=== PATIENT | male | born 1980 | race Caucasian/White ===

== ENCOUNTER 2023-10-03 05:13 | Emergency (ER) | payer OTHER, SELFPAY ==
[2023-10-03 05:16] VITALS: BP 170/120
[2023-10-03 05:47] VITALS: BMI 33.0
[2023-10-03 05:52] VITALS: BP 148/106
[2023-10-03 05:59] LABS: % Basophils 0.4 % (0-2); % Eosinophils 2.6 % (0-6); % Immature Granulocytes 0.4 % (0-0.5); % Lymphocytes 46.6 % (20.5-51.1); % Monocytes 11.6 % (1.7-9.3); % Neutrophils 38.4 % (42.2-75.2); Absolute Eosinophils 0.2 10^3/uL (0-0.7); Absolute Lymphocytes 3.3 10^3/uL (1.2-3.4); Absolute Monocytes 0.8 10^3/uL (0.1-0.6); Absolute Neutrophils 2.7 10^3/uL (1.4-6.5); Hemoglobin 14.3 g/dL (13.0-18.0); Mean Corp Hgb Conc. 34.9 g/dL (33.0-37.0); Mean Corpuscular Hgb 29.4 pg (27.0-31.0); Mean Corpuscular Volume 84.4 fL (80.0-94.0); Nucleated Red Blood Cells % 0 % (-); Platelet Count 380 10^3/uL (130-400); Red Blood Cell Count 4.86 10^6/uL (4.70-6.10); Red Cell Dist. Width 12.3 % (11.5-14.5)
--- NOTE | 2023-10-03 06:00 | ED.GENMED ---
History of Present Illness
General
Chief Complaint: Abdominal Pain
Time Seen by Provider: 10/03/23 06:00
Travel History
Have you had any contact with someone who has COVID-19?: No
Do you have any symptoms of coronavirus? Fever > 100 degrees, chills, cough, shortness of breath, sore throat, loss of taste or smell, muscle aches, or headache?: No
History of Present Illness
History of Present Illness:
HPI: Patient presents with abdominal pain. This is associated with several other symptoms including sensation of rapid heartbeat�he took propranolol. He also sensation of his face being red. He feels that the abdominal disc was described as
feeling bloated 'like a basketball in my stomach'. He did take Gas-X earlier and feels somewhat improved but feels that his symptoms are gone return if he has anything to eat
EXAM:
GENERAL: Well appearing in no distress
HEENT: Moist oral mucosa
CARDIOVASCULAR: No murmurs, normal heart rate, regular rhythm, No chest wall tenderness
PULMONARY: No respiratory distress, breath sounds are clear and equal
ABDOMEN: Soft with no peritoneal signs, minimal left lower quadrant tenderness, elevated BMI
NEUROLOGIC: Excellent strength all extremities, no coordination deficits
PSYCHIATRIC: Appropriate mental status, normal insight and judgement
EXTREMITIES: Nontender, no edema, moves all extremities equally
SKIN: No rash, no lesions
TIME OF INITIAL ENCOUNTER: 6:10 AM
NUMBER AND COMPLEXITY OF PROBLEMS ADDRESSED AT THE ENCOUNTER
� Chronic conditions affecting care: GERD, anxiety, OCD
� Acute Exacerbation and/or Progression of Chronic Illness: This is an acute problem
� Differential Diagnosis includes: Diverticulitis, anxiety, GERD
AMOUNT AND/OR COMPLEXITY OF DATA TO BE REVIEWED AND ANALYZED
� I performed an independent evaluation of and my interpretation is:
EKG: Sinus 78, inferior Q waves
CT: CT abdomen pelvis shows no acute abnormality however urinary bladder was distended
X-rays:
Laboratory Studies: CBC unremarkable results unremarkable including normal lipase
Other:
� Review of other/old records: Stress echo from 2020 was unremarkable
� Clinical information was obtained by an independent historian: None needed
� Prescriptions/Medications Considered but not given:
� Further testing considered but not performed:
RISK OF COMPLICATIONS AND/OR MORBIDITY OR MORTALITY OF PATIENT MANAGEMENT
� Social determinants of health affecting care: Lives at home
� Discussion with other providers: Notified GI front office for close follow-up
� Escalation of care including admission/observation vs risk of discharge considered: Will obtain CT imaging given the left lower quadrant tenderness but overall he is spontaneously feeling improved. CT unremarkable�urinalysis
negative. The patient also tells me he is on a new psychiatric medication for OCD�he is to follow-up with psychiatrist. Appears comfortable at time of discharge at 7:40 AM.
Past History
Past History
ED Past Medical History: None
ED Past Surgical History: None
Social History
Tobacco: Non-smoker
Personal: Single
Living: alone
Employment: Employed
Phy Exam
Physical Exam
Physical Exam:
See HPI
Course
Orders/Labs/Results
Orders:
Orders
10/03/23 05:53
Complete Blood Count/With Diff Urgent
Comprehensive Metabolic Panel Urgent
Lipase Urgent
10/03/23 05:54
ECG [Electrocardiogram (*1)] Urgent
Reason for Study: Abdominal Pain
10/03/23 05:55
EKG- Treatment ONCE
10/03/23 06:16
Urinalysis Reflex To Culture Urgent
Date Specimen was Collected: 10/03/23
Time Specimen was Collected: 06:12
10/03/23 06:20
Iohexol [Omnipaque] 50 ml .ROUTE .[facility]
10/03/23 06:21
CT Abd/pelvis W Iv Cont Urgent
Comment:
Reason For Exam: abd pain mostly llq
Abnormal Lab Results
10/03/23
05:53
Absolute Monos (auto) 0.8 H 10^3/uL
(0.1-0.6)
Neutrophils % 38.4 L %
(42.2-75.2)
Monocytes % 11.6 H %
(1.7-9.3)
Glucose 108 H mg/dl
(70-99)
10/03/23 05:53
10/03/23 05:53
Vital Signs
Initial and Last Documented VS:
Initial Vital Signs
Temp Pulse Resp BP Pulse Ox
97.6 F 88 24 170/120 98
10/03/23 05:16 10/03/23 05:16 10/03/23 05:16 10/03/23 05:16 10/03/23 05:16
Last Documented Vital Signs
Temp Pulse Resp BP Pulse Ox
98.8 F 78 16 148/106 97
10/03/23 05:52 10/03/23 05:52 10/03/23 05:52 10/03/23 05:52 10/03/23 05:52
*Critical Care Note
Total Time (30-74mins, 75-104mins- exclusive of procedures): Not Applicable
ED Attending Note
-
Portions of this chart may have been created with voice recognition software.� Occasional wrong word or��sound alike� substitutions may have occurred due to the inherent limitations of voice recognition software.
Discharge Plan
Departure
Patient Disposition: Home (Routine Discharge)
Date of Disposition: 10/03/23
Time of Disposition: 07:35
Patient with high blood pressure during this ER visit?: Yes
Discharge Problem:
Abdominal pain
Instructions: Abdominal Pain
Prescriptions:
No Action
albuterol sulfate 1 PUFF HFA aerosol inhaler
2 puff inhalation R QID PRN (Reason: sob)
omeprazole 40 mg Capsule,Delayed Release(Dr/Ec)
40 mg PO DAILY
propranolol 20 mg Tablet
20 mg PO PRN PRN (Reason: anxiety)
vilazodone 20 mg Tablet
10 mg PO DAILY
Referrals:
Hudson Dunham DO [Family Provider] -
Jaime Lazar MD [Active] - Follow up in 2-3 days
Activity Restrictions/Additional Instructions:
The cause of your symptoms is unclear. I recommend you follow-up with GI and with your psychiatrist. Blood work was normal today. Continue omeprazole. Return here if worse.
Interventions
Interventions:
*Risk Screen - Suicide Last Done: 10/03/23 05:16
*General Assessment Last Done: 10/03/23 05:48
*Neglect/Abuse Screening Last Done: 10/03/23 05:16
ED- Fall Risk Assessment Last Done: 10/03/23 05:50
*ED COVID-19 Vaccine History Last Done: 10/03/23 05:47
UN-Lzqumh-Mstqshcjre Assessment Last Done: 10/03/23 05:50
ED- Cardiac Assessment Last Done: 10/03/23 05:50
ED- Neurological Assessment Last Done: 10/03/23 05:50
ED- Pulmonary Assessment Last Done: 10/03/23 05:50
[2023-10-03 06:14] LABS: ALT (SGPT) 50 U/L (0-50); AST (SGOT) 48 U/L (17-59); Albumin 4.4 g/dl (3.5-5.0); Alkaline Phosphatase 61 U/L (38-126); Blood Urea Nitrogen 18 mg/dl (9-20); Calcium 9.3 mg/dl (8.4-10.2); Carbon Dioxide 28 mmol/L (22-30); Chloride 104 mmol/L (98-107); Estimated Creatinine Clearance > 125 ml/min; Glucose 108 mg/dl (70-99); Lipase 158 U/L (23-300); Potassium 4.7 mmol/L (3.5-5.1); Sodium 137 mmol/L (135-145); Total Bilirubin 0.5 mg/dl (0.2-1.3); Total Protein 7.3 g/dl (6.3-8.2); eGFR > 60.00
[2023-10-03 07:13] LABS: Urine Albumin Negative (Neg - Trace); Urine Bilirubin Negative (Negative); Urine Character Clear (Clear); Urine Color Yellow; Urine Glucose Negative (Negative); Urine Ketone Negative (Negative); Urine Leukocyte Negative (Negative); Urine Nitrite Negative (Negative); Urine Occult Blood Negative (Negative); Urine Urobilinogen Negative (Neg - 1+)
[2023-10-03 08:03] VITALS: BP 121/82
== END 2023-10-03 08:15 | disposition home or self-care (01) ==
LOC: EMR 05:13
PROVIDERS: Student in an Organized Health Care Education/Training Program; EMERGENCY PHYSICIAN Emergency Medicine; FAMILY PHYSICIAN Family Medicine
DX: R10.9 Unspecified abdominal pain (principal); R03.0 Elevated blood-pressure reading, without diagnosis of hypertension
CPT/HCPCS: 99285; 74177; 80053; 81003; 83690; 85025; 93005; Q9967

== ENCOUNTER 2023-10-05 04:25 | Emergency (ER) | payer OTHER, SELFPAY ==
[2023-10-05 04:28] VITALS: BP 167/109
[2023-10-05 04:45] VITALS: BMI 33.2
--- NOTE | 2023-10-05 04:51 | ED.GENMED ---
History of Present Illness
<MANUELITO Teresa - Last Filed: 10/05/23 06:00>
General
Chief Complaint: Abdominal Pain
Source: patient
Exam Limitations: none
Time Seen by Provider: 10/05/23 04:29
Nursing documentation reviewed up to this point in time: agreed with
Travel History
Have you had any contact with someone who has COVID-19?: No
Do you have any symptoms of coronavirus? Fever > 100 degrees, chills, cough, shortness of breath, sore throat, loss of taste or smell, muscle aches, or headache?: No
History of Present Illness
History of Present Illness:
patient is a 43 y/o male with PMH of hiatal hernia and fatty liver disease presenting with abdominal pain x 3 days. patient presents with abdominal pain that becomes worse when lying supine. Patient admits the pain is better when he is up and moving
around. patient admits to increased distension of the abdomen that is associated with the pain. Patient admtis the distension increases when lying down and is the cause of his discomfort. Patient admits he has forced himself to vomit multiple times
to try and relive the pain and distention with mild relief. patient was in the hospital 2 days ago for abdominal pain and was told to follow up with GI and take omeprazole which he has been doing. patient denies N/D/C, CP, SOB, HENRY, fever, chills,
and blood in the stool.
Past History
<MANUELITO Teresa - Last Filed: 10/05/23 06:00>
Past History
ED Past Medical History: None
ED Past Surgical History: None
Social History
Tobacco: Non-smoker
Personal: Single
Living: alone
Employment: Employed
Review of Systems
<MANUELITO Teresa - Last Filed: 10/05/23 06:00>
Review of Systems
All Other Systems: Not applicable
Constitutional: Reports no symptoms
EENT: Reports no symptoms
Respiratory: Reports no symptoms
Cardiac: Reports no symptoms
ABD/GI: Reports abdominal pain and other (bloating )
: Reports no symptoms
Musculoskeletal: Reports no symptoms
Skin: Reports no symptoms
Neurological: Reports no symptoms
Endocrine: Reports no symptoms
Hematologic/Lymphatic: Reports no symptoms
Psychiatric: Reports no symptoms
Phy Exam
<MANUELITO Teresa - Last Filed: 10/05/23 06:00>
General Physical Exam
General Presentation: well appearing and no apparent distress
General Skin: warm and dry
General Habitus: normal
General Mental: alert
General Hydration: appears well hydrated
ENT Exam
ENT Exam: EOMI, pharynx normal, neck supple and normocephalic
Eye Exam
Eye Exam: PERRL, cornea clear and conjunctiva normal
Cardiovascular Exam
Cardiovascular Exam: regular rate/rhythm, no edema, no murmur and normal peripheral pulses
Pulmonary Exam
Pulmonary Exam: lungs clear, no respiratory distress, no rales, no crackles, no rhonchi, no stridor, no wheezing and no cough
Gastrointestinal Exam
Gastrointestinal Exam: normal bowel sounds, soft, distended, tender and other (history of hiatal hernia )
Palpation: generalized: Minimal tenderness
Auscultation of Abdomen: normal
Neurological Exam
Neurological Exam: alert, oriented x3, no motor deficits and speech normal
Musculoskeletal Exam
Musculoskeletal Exam: full ROM and no edema
Skin Exam
Skin Exam: normal color, warm/dry, no rash and no petechia
Psychiatric Exam
Psychiatric Exam: normal mood/affect
Course
<MANUELITO Teresa - Last Filed: 10/05/23 06:00>
Orders/Labs/Results
Orders:
Orders
10/05/23 05:21
Complete Blood Count/With Diff Urgent
Comprehensive Metabolic Panel Urgent
Lipase Urgent
Urinalysis Reflex To Culture Urgent
Date Specimen was Collected: 10/05/23
Time Specimen was Collected: 05:12
10/05/23 05:49
Lactic Acid Urgent
Lipase Urgent
10/05/23 05:50
INR [Prothrombin Time] Urgent
PTT Urgent
Abnormal Lab Results
10/05/23
05:21
Absolute Monos (auto) 0.8 H 10^3/uL
(0.1-0.6)
Neutrophils % 42.1 L %
(42.2-75.2)
Monocytes % 11.0 H %
(1.7-9.3)
Sodium 134 L mmol/L
(135-145)
Glucose 111 H mg/dl
(70-99)
ALT 55 H U/L
(0-50)
10/05/23 05:21
10/05/23 05:21
Vital Signs
Initial and Last Documented VS:
Initial Vital Signs
Temp Pulse Resp BP Pulse Ox
98.1 F 88 20 167/109 100
10/05/23 04:28 10/05/23 04:28 10/05/23 04:28 10/05/23 04:28 10/05/23 04:28
Last Documented Vital Signs
Temp Pulse Resp BP Pulse Ox
98.1 F 88 20 167/109 98
10/05/23 04:28 10/05/23 04:28 10/05/23 04:28 10/05/23 04:28 10/05/23 04:51
Joaquimlt;Ramakrishna Garg, DO - Last Filed: 10/05/23 06:36>
Orders/Labs/Results
Orders:
Orders
10/05/23 05:21
Complete Blood Count/With Diff Urgent
Comprehensive Metabolic Panel Urgent
Lipase Urgent
Urinalysis Reflex To Culture Urgent
Date Specimen was Collected: 10/05/23
Time Specimen was Collected: 05:12
10/05/23 05:49
Lactic Acid Urgent
Lipase Urgent
10/05/23 05:50
INR [Prothrombin Time] Urgent
PTT Urgent
Abnormal Lab Results
10/05/23
05:21
Absolute Monos (auto) 0.8 H 10^3/uL
(0.1-0.6)
Neutrophils % 42.1 L %
(42.2-75.2)
Monocytes % 11.0 H %
(1.7-9.3)
Sodium 134 L mmol/L
(135-145)
Glucose 111 H mg/dl
(70-99)
ALT 55 H U/L
(0-50)
10/05/23 05:21
10/05/23 05:21
Vital Signs
Initial and Last Documented VS:
Initial Vital Signs
Temp Pulse Resp BP Pulse Ox
98.1 F 88 20 167/109 100
10/05/23 04:28 10/05/23 04:28 10/05/23 04:28 10/05/23 04:28 10/05/23 04:28
Last Documented Vital Signs
Temp Pulse Resp BP Pulse Ox
98.1 F 88 20 167/109 98
10/05/23 04:28 10/05/23 04:28 10/05/23 04:28 10/05/23 04:28 10/05/23 04:51
Joaquimlt;MANUELITO Teresa - Last Filed: 10/05/23 06:00>
MDM/Problems Addressed
Differential Diagnosis Includes:
SBO
hiatal hernia complication
bloating
MDM/Problems Addressed:
abdominal discomfort
Chronic conditions affecting care:
hiatal hernia and fatty liver disease
<MANUELITO Teresa - Last Filed: 10/05/23 06:00>
*Critical Care Note
Total Time (30-74mins, 75-104mins- exclusive of procedures): Not Applicable
ED Attending Note
<MANUELITO Teresa - Last Filed: 10/05/23 06:00>
-
Portions of this chart may have been created with voice recognition software.� Occasional wrong word or��sound alike� substitutions may have occurred due to the inherent limitations of voice recognition software.
<Ramakrishna Garg DO - Last Filed: 10/05/23 06:36>
ED Attending Note
Patient seen and examined by attending physician: Yes
I performed the substantive portion of visit, reviewed & personally made and approve the management plan that is documented in note by myself or QUINTON.: Yes
ED Attending Note:
This a pleasant 43-year-old male presents with abdominal pain that is worse when lying flat. He states that the pain is better when sitting up and moving around. Patient does report increased distention. Patient was seen in the emergency
department 2 days ago and had workup including CAT scan done. He states his symptoms have not subsided. He was started on omeprazole. He does report continued bloating. Denies fever, chills, chest pain, or shortness of breath. Patient was seen
in conjunction with the PA student. I have reviewed and agree with the history and treatment plan presented. On my independent physical exam, patient is awake, alert, and oriented x3, minimal acute distress. Heart is regular rate and rhythm.
Lungs are clear to auscultation bilaterally without wheezes rales or rhonchi abdomen is soft nontender and is not distended at time of exam. Good bowel sounds x 4 quadrants.
I spoke with Dr. Evans, gastroenterology who recommended FDgard, [id number] and Dr. Cleveland will see him today at 115
Patient will follow-up at gastroenterology today. He will apply the FD guard.
Discharge Plan
Departure
Patient Disposition: Home (Routine Discharge)
Date of Disposition: 10/05/23
Time of Disposition: 06:28
Patient with high blood pressure during this ER visit?: Yes
Condition: Good
Discharge Problem:
Abdominal pain, Bloating
Prescriptions:
New
sucralfate [Carafate] 100 mg/mL suspension
10 ml PO QID Qty: 200 0RF
No Action
albuterol sulfate 1 PUFF HFA aerosol inhaler
2 puff inhalation R QID PRN (Reason: sob)
omeprazole 40 mg Capsule,Delayed Release(Dr/Ec)
40 mg PO DAILY
propranolol 20 mg Tablet
20 mg PO PRN PRN (Reason: anxiety)
vilazodone 20 mg Tablet
10 mg PO DAILY
Referrals:
Hudson Dunham DO [Family Provider] -
Steph Pierre MD [Active] - Next open appointment
Activity Restrictions/Additional Instructions:
Please purchase FDgard [id number].
Please keep your appointment with Dr. Pierre scheduled for today. Please be at the office by 1:30pm TODAY
Continue to take your omeprazole
It was a pleasure meeting you and taking part in your care. We hope for your continued healing and wellness.
Please read discharge instructions in their entirety. However, they are for general education and may not describe your exact diagnosis at discharge. Information on your ER visit and medical conditions were discussed with you along with appropriate
follow up information...
If indicated, please take your medications as instructed and indicated on discharge paperwork.
Please schedule a follow up appointment as directed. Call to schedule an appointment
Please return to the emergency department with ANY change in, persisting, or worsening of symptoms. If any of your symptoms do not improve, or persist, or become more severe within 6-12 hours, please return to the emergency department for further
care.
Please return to the emergency department if you develop a headache, neck pain/stiffness, fever greater than 100.4F, chest pain, shortness of breath, persistent nausea, vomiting, slurred speech, difficulty walking, numbness/tingling, weakness, signs
of infection or any other symptoms that are worrisome to you.
If you have any questions or concerns please do not hesitate to call the Hospital at or E-mail me directly at [email or web address]
Interventions
Interventions:
*Risk Screen - Suicide Last Done: 10/05/23 04:32
*General Assessment Last Done: 10/05/23 04:32
*Neglect/Abuse Screening Last Done: 10/05/23 04:32
*ED COVID-19 Vaccine History Last Done: 10/05/23 04:33
ER-Mqoocy-Egolisdlqg Assessment Last Done: 10/05/23 04:51
[2023-10-05 05:30] LABS: % Basophils 0.4 % (0-2); % Eosinophils 2.1 % (0-6); % Immature Granulocytes 0.3 % (0-0.5); % Lymphocytes 44.1 % (20.5-51.1); % Neutrophils 42.1 % (42.2-75.2); Absolute Eosinophils 0.2 10^3/uL (0-0.7); Absolute Lymphocytes 3.1 10^3/uL (1.2-3.4); Absolute Monocytes 0.8 10^3/uL (0.1-0.6); Absolute Neutrophils 2.9 10^3/uL (1.4-6.5); Hematocrit 41.3 % (39.0-52.0); Hemoglobin 14.4 g/dL (13.0-18.0); Mean Corp Hgb Conc. 34.9 g/dL (33.0-37.0); Mean Corpuscular Hgb 29.3 pg (27.0-31.0); Mean Corpuscular Volume 84.1 fL (80.0-94.0); Mean Platelet Volume 9.1 fL (7.4-10.4); Nucleated Red Blood Cells % 0 % (-); Platelet Count 379 10^3/uL (130-400); Red Blood Cell Count 4.91 10^6/uL (4.70-6.10); Red Cell Dist. Width 12.2 % (11.5-14.5)
[2023-10-05 05:42] LABS: Urine Albumin Negative (Neg - Trace); Urine Bilirubin Negative (Negative); Urine Character Clear (Clear); Urine Color Yellow; Urine Glucose Negative (Negative); Urine Ketone Negative (Negative); Urine Leukocyte Negative (Negative); Urine Nitrite Negative (Negative); Urine Occult Blood Negative (Negative); Urine Specific Gravity 1.005 (<1.030); Urine Urobilinogen Negative (Neg - 1+)
[2023-10-05 05:52] LABS: ALT (SGPT) 55 U/L (0-50); AST (SGOT) 45 U/L (17-59); Albumin 4.4 g/dl (3.5-5.0); Alkaline Phosphatase 60 U/L (38-126); Blood Urea Nitrogen 14 mg/dl (9-20); Calcium 9.6 mg/dl (8.4-10.2); Carbon Dioxide 27 mmol/L (22-30); Chloride 102 mmol/L (98-107); Estimated Creatinine Clearance > 125 ml/min; Glucose 111 mg/dl (70-99); Lipase 130 U/L (23-300); Potassium 4.7 mmol/L (3.5-5.1); Sodium 134 mmol/L (135-145); Total Bilirubin 0.5 mg/dl (0.2-1.3); Total Protein 7.2 g/dl (6.3-8.2); eGFR > 60.00
[2023-10-05 06:37] VITALS: BP 120/73
[2023-10-05] MEDS: CARAFATE SUSPENSION 1 GM PO (06:43)
[2023-10-05] MEDS: MYLICON 80 MG PO (06:44)
== END 2023-10-05 07:29 | disposition home or self-care (01) ==
LOC: EMR 04:25
PROVIDERS: EMERGENCY PHYSICIAN Student in an Organized Health Care Education/Training Program; FAMILY PHYSICIAN Family Medicine
DX: R10.9 Unspecified abdominal pain (principal); R14.0 Abdominal distension (gaseous); R11.10 Vomiting, unspecified; R03.0 Elevated blood-pressure reading, without diagnosis of hypertension; K44.9 Diaphragmatic hernia without obstruction or gangrene; K76.0 Fatty (change of) liver, not elsewhere classified; J45.909 Unspecified asthma, uncomplicated; K21.9 Gastro-esophageal reflux disease without esophagitis; F41.9 Anxiety disorder, unspecified; F42.9 Obsessive-compulsive disorder, unspecified; Z86.16 Personal history of COVID-19
CPT/HCPCS: 99283; 80053; 81003; 83690; 85025

== ENCOUNTER → 2023-10-06 13:31 | Outpatient (REF) | payer OTHER, SELFPAY | LOC: RAD 13:31 | PROVIDERS: ATTENDING PHYSICIAN Family Medicine | DX: R06.02 Shortness of breath (principal) | CPT/HCPCS: 71046 ==

== ENCOUNTER → 2023-10-10 06:24 | Day surgery (SDC) | payer OTHER, SELFPAY | LOC: GI 06:24 | PROVIDERS: ATTENDING PHYSICIAN Internal Medicine Gastroenterology | DX: R12 Heartburn (principal); R14.0 Abdominal distension (gaseous); K31.89 Other diseases of stomach and duodenum; K29.50 Unspecified chronic gastritis without bleeding | CPT/HCPCS: 43239; 88305; 88342 ==

== ENCOUNTER → 2023-10-27 15:40 | Outpatient (REF) | payer OTHER, SELFPAY | LOC: RAD 15:40 | PROVIDERS: ATTENDING PHYSICIAN Family Medicine | DX: D29.20 Benign neoplasm of unspecified testis (principal) | CPT/HCPCS: 76870; 93976 ==